=== PATIENT | male | born 1955 | race Asian ===

== ENCOUNTER 2019-05-15 15:55 | Emergency (ER) | payer OTHER ==
[~2019-05-15] VITALS: Ht 177.8 cm; Wt 86.2 kg
[2019-05-15 16:04] VITALS: TEMP 98.1
[2019-05-15 17:05] VITALS: BP 146/96
== END 2019-05-15 17:05 | disposition home or self-care (01) ==
LOC: ED 15:55
PROC: 0HQGXZZ Repair Left Hand Skin, External Approach (ICD-10-PCS; principal; 2019-05-15)
DX: S61.211A Laceration without foreign body of left index finger without damage to nail, initial encounter (principal); S61.213A Laceration without foreign body of left middle finger without damage to nail, initial encounter; S61.315A Laceration without foreign body of left ring finger with damage to nail, initial encounter; W45.8XXA Other foreign body or object entering through skin, initial encounter
CPT/HCPCS: 90471; 90715; 96372; 99283; J0696; J1885; J7040